=== PATIENT | male | born 1975 | race Caucasian/White ===

== ENCOUNTER 2024-12-03 07:14 | Outpatient (CLI) | payer OTHER | END 2024-12-03 10:00 | disposition home or self-care (01) | LOC: SONOGRAMA 07:14 | DX: N20.0 Calculus of kidney (principal) ==

== ENCOUNTER 2025-05-24 06:24 | Outpatient (CLI) | payer OTHER | END 2025-05-24 10:51 | disposition home or self-care (01) | LOC: TOM 06:24 | DX: K43.2 Incisional hernia without obstruction or gangrene (principal) ==